=== PATIENT | female | born 1990 | race Two or more races ===

== ENCOUNTER 2017-02-17 12:38 | Emergency (ER) | payer MEDICAID ==
[~2017-02-17] VITALS: Ht 160 cm; Wt 72.1 kg
[2017-02-17 13:52] VITALS: BP 138/88
== END 2017-02-17 14:57 | disposition home or self-care (01) ==
LOC: ER 12:52
DX: F41.1 Generalized anxiety disorder (principal); F17.210 Nicotine dependence, cigarettes, uncomplicated; F12.10 Cannabis abuse, uncomplicated
CPT/HCPCS: 93005

== ENCOUNTER 2018-03-10 14:06 | Emergency (ER) | payer MEDICAID ==
[~2018-03-10] VITALS: Ht 160 cm; Wt 82.7 kg
[2018-03-10 16:23] VITALS: BP 114/68
[2018-03-10] MEDS ORDERED: KETOROLAC TROMETH 60MG/2ML VIAL IM ONE (16:45)
== END 2018-03-10 17:02 | disposition home or self-care (01) ==
LOC: ER 14:06
DX: S16.1XXA Strain of muscle, fascia and tendon at neck level, initial encounter (principal); F17.210 Nicotine dependence, cigarettes, uncomplicated; X50.1XXA Overexertion from prolonged static or awkward postures, initial encounter; Y93.89 Activity, other specified; Y92.89 Other specified places as the place of occurrence of the external cause; Y99.8 Other external cause status
CPT/HCPCS: 72040; 96372; 99284; J1885

== ENCOUNTER 2021-03-02 10:37 | Emergency (ER) | payer MEDICAID ==
[~2021-03-02] VITALS: Ht 162.6 cm; Wt 87.5 kg
[2021-03-02 10:57] VITALS: BP 116/66
[2021-03-02] MEDS ORDERED: METHOCARBAMOL 500 MG TAB PO ONE (12:00)
[2021-03-02] MEDS ORDERED: KETOROLAC TROMETH 60MG/2ML VIAL IM ONE (12:00)
== END 2021-03-02 12:05 | disposition home or self-care (01) ==
LOC: ER 10:37
DX: M62.838 Other muscle spasm (principal); F17.210 Nicotine dependence, cigarettes, uncomplicated
CPT/HCPCS: 96372; 99283; J1885

== ENCOUNTER 2024-08-06 09:27 | Emergency (ER) | payer MEDICAID ==
[~2024-08-06] VITALS: Ht 160 cm; Wt 77.3 kg
[2024-08-06 10:10] LABS: Urine Bacteria None Seen /hpf (None Seen)
[2024-08-06 10:16] VITALS: BP 124/70; PULSE 72; RESP 16; TEMP 98.2; O2SAT 98
[2024-08-06] MEDS: methylPREDNISolone SOD SUCC 125 MG/2 ML VL IM ONE (10:29)
[2024-08-06 10:49] LABS: Urine Blood Negative /uL (Negative); Urine Clarity Clear (Clear); Urine Color Light-Yellow (Yellow); Urine Protein, UAD Negative (Negative); Urine Specific Gravity 1.013 (1.001-1.035); Urine Urobilinogen Normal (Negative); Urine WBC 4 /hpf (0 - 5); Urine pH 5.5 (5.0-9.0)
[2024-08-06] MEDS ORDERED: NAPR-746 PO (11:06)
[2024-08-06] MEDS ORDERED: CYCL-837 PO (11:06)
[2024-08-06] MEDS ORDERED: LIDO5DIS21 TOP (11:06)
== END 2024-08-06 11:23 | disposition home or self-care (01) ==
LOC: ER 09:27
DX: M54.50 Low back pain, unspecified (principal); Z79.899 Other long term (current) drug therapy; Z98.890 Other specified postprocedural states
CPT/HCPCS: 81001; 81025; 96372; 99283; J2919

== ENCOUNTER 2025-03-29 16:04 | Emergency (ER) | payer MEDICAID ==
[~2025-03-29] VITALS: Ht 162.6 cm; Wt 76.0 kg
[~2025-03-29 16:04] MED LIST: CYCL-837 PO; LIDO5DIS21 TOP; NAPR-746 PO
[2025-03-29 17:05] VITALS: BP 115/78; PULSE 80; RESP 18; TEMP 97.8; O2SAT 96
--- NOTE | 2025-03-29 17:20 | ED.PDOC ---
Back pain HPI HPI Comments A 34 YEAR OLD FEMALE PRESENTS TO THE ED WITH CHIEF COMPLAINT OF LOWER BACK PAIN. PATIENT REPORTS THAT SHE HAS BEEN EXPERIENCING LOWER BACK PAIN FOR THE PAST 2 DAYS. PATIENT RELAYS THAT SHE WORKS A [employer] AND IS ALWAYS ON HER FEET, EXACERBATING HER PAIN. PATIENT NOTES SHE HAS BEEN SEEN MULTIPLE TIMES FOR THIS COMPLAINT AND REQUESTS LIDOCAINE PATCHES FOR RELIEF. PATIENT DENIES ANY NUMBNESS, WEAKNESS, TINGLING, FALL, OR INJURY. NO FURTHER COMPLAINTS OR CONCERNS AT THIS TIME. Chief Complaint: Back Pain Time Seen by MD: 17:18 Primary Care Provider: None Reviewed Notes: Nurses Notes, Medications, Allergies Allergies: Coded Allergies: NO KNOWN ALLERGIES (Unverified , 12/25/10) Home Meds Active Scripts Lidocaine (Lidocaine Patch 5%) 5 % Pad, 5 % EX DAILY, #30 PAD Prov:HAYDEN SIMMONS 03/29/25 Naproxen (Naproxen) 500 Mg Tab, 500 MG PO BIDPC for 14 Days, #28 TAB 0 Refills Prov:NICK ESPARZA NP 08/06/24 Lidocaine (LIDODERM 5% TOPICAL PATCH) 1 Patch Ph, 1 PATCH TOP DAILY for 30 Days, #30 PATCH 0 Refills Prov:NICK ESPARZA NP 08/06/24 Cyclobenzaprine Hcl (Cyclobenzaprine Hcl) 5 Mg Tab, 1 TAB PO QHSP PRN for 30 Days, #30 TAB 0 Refills Prov:NICK ESPARZA NP 08/06/24 Information Source: Patient Mode of Arrival: Ambulatory Timing: Days Duration: Since onset Location of Back pain: (B) Lower back Severity: Moderate Prehospital treatment: None Quality: Aching Onset: Bending, Twisting, Lifing Circumstance: Work Related History of: None Modifying Factors: Movement, Twisting Associated signs and symptoms: None Past Medical History PAST MEDICAL HISTORY: Denies Surgical History: Denies all surgeries PRESENTATION MANAGER History: No Pertinent PRESENTATION MANAGER History Family History Family History: Reviewed,noncontributory to illness, Unknown Social History Smoker: Cigarettes Alcohol: Denies ETOH Use Drugs: Marijuana Lives In: Home Constitutional: denies: chills, diaphoresis, fatigue, fever, malaise, sweats, weakness, others EENTM: denies: blurred vision, double vision, ear bleeding, ear discharge, ear drainage, ear pain, ear ringing, eye pain, eye redness, hearing loss, mouth pain, mouth swelling, nasal discharge, nose bleeding, nose congestion, nose pain, photophobia, tearing, throat pain, throat swelling, voice changes, others Respiratory: denies: cough, hemoptysis, orthopnea, SOB at rest, shortness of breath, SOB with excertion, stridor, wheezing, others Cardiovascular: denies: chest pain, dizzy spells, diaphoresis, Dyspnea on exertion, edema, irregular heart beat, left arm pain, lightheadedness, palpitations, PND, syncope, others Gastrointestinal: denies: abdomen distended, abdominal pain, blood streaked bowels, constipated, diarrhea, dysphagia, difficulty swallowing, hematemesis, melena, nausea, poor appetite, poor fluid intake, rectal bleeding, rectal pain, vomiting, others Genitourinary: denies: abnormal vagina bleeding, burning, dyspareunia, dysuria, flank pain, frequency, hematuria, incontinence, pain, , vagina discharge, urgency, others Neurological: denies: dizziness, fainting, headache, left sided numbness, left sided weakness, numbness, paresthesia, pre-existing deficit, right sided numbness, right sided weakness, seizure, speech problems, tingling, tremors, weakness, others Musculoskeletal: reports: back pain, muscle pain; denies: gout, joint pain, joint swelling, muscle stiffness, neck pain, others Integumetry: denies: bruises, change in color, change in hair/nails, dryness, laceration, lesions, lumps, rash, wounds, others Allergic/Immunocompromised: denies: Difficulty Healing, Frequent Infections, Hives, Itching, others Hematologic/Lymphatic: denies: anemia, blood clots, easy bleeding, easy bruising, swollen glands, others Endocrine: denies: excessive hunger, excessive sweating, excessive thirst, excessive urination, flushing, intolerance to cold, intolerance to heat, unexplained weight gain, unexplained weight loss, others Psychiatric: denies: anxiety, bipolar disorder, depression, hopeless, panic disorder, schizophrenia, sleepless, suicidal, others All Other Systems: Reviewed and Negative Physical Exam General Appearance: No Apparent Distress, Normal HEENT: Normal ENT Inspection, PERRL/EOMI, Pharynx Normal, TMs Normal Neck: Full Range of Motion, Non-Tender, Normal, Normal Inspection Respiratory: Chest Non-Tender, Lungs Clear, No Accessory Muscle Use, No Respiratory Distress, Normal Breath Sounds Cardiovascular: No Edema, No JVD, No Murmur, No Gallop, Normal Peripheral Pulses, Regular Rate/Rhythm Breast Exam: Deferred Gastrointestinal: No Organomegaly, Non Tender, No Pulsatile Mass, Normal Bowel Sounds, Soft Genitalia: Deferred Pelvic: Deferred Rectal: Deferred Extremities: No calf tenderness, Normal capillary refill, Normal inspection, Normal range of motion, Non-tender, No pedal edema Musculoskeletal : Location: Bilateral Extremity Location: Back Apperance: Tenderness (AND MUSCLE SPASM ON LOW BACK, NO BONY TENDERNESS, SWELLING AND DEFORMITY. 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 Was a procedure done?: No Back Pain Differential Dx Differential Diagnosis: Musculoskeletal Pain, Strain X-Ray, Labs, Meds, VS Vital Signs Date Time Temp Pulse Resp B/P (MAP) Pulse Ox O2 Delivery O2 Flow Rate FiO2 03/29/25 17:05 80 18 96 Room Air 03/29/25 17:05 97.8 80 18 115/78 (90) 96 97.8 03/29/25 16:21 97.8 80 18 115/78 (90) 96 97.8 Current Medications Medications (Trade) Dose Ordered Sig/Antonina Route Start Time Stop Time Status Last Admin Ketorolac Tromethamine (Toradol Injection) 60 mg ONCE ONCE IM 03/29/25 17:15 03/29/25 17:16 DC 03/29/25 17:24 X-Ray, Labs, Meds, VS Comment EXTERNAL MEDICAL RECORDS REVIEWED: [NONE] INDEPENDENT HISTORIANS: [NONE] SOCIAL DETERMINANTS OF HEALTH: [NONE] LABS ORDERED: NONE REVIEWED AND INTERPRETED RESULTS: L-SPINE XR IMAGING ORDERED: L-SPINE XR, PT DECLINED LOW BACK X-RAY. TREATMENTS ORDERED: TORADOL 60MG IM PROCEDURES PERFORMED: NONE CRITICAL CARE TIME: NONE I HAVE DISCUSSED THE PATIENT WITH THE ATTENDING PHYSICIAN DR. CORNELIO AND HE AGREES WITH THE PATIENT'S PLAN OF CARE AND DISPOSITION. BASED ON HISTORY OF PRESENT ILLNESS, AND PHYSICAL EXAM, PATIENT WILL BE DISCHARGED HOME. DISCUSSED PLAN FOR DISCHARGE HOME WITH RX LIDOCAINE PATCHES. MEDICATION WARNINGS GIVEN. SHARED DECISION MAKING: DISCUSSED WITH PATIENT THAT THEIR WORKUP WAS NORMAL. PATIENT INSTRUCTED TO FOLLOW UP WITH PRIMARY CARE PROVIDER IN 1-2 DAYS FOR RE- EVALUATION OF SYMPTOMS. PATIENT VERBALIZES UNDERSTANDING TO RETURN TO ED FOR NEW OR WORSENING SYMPTOMS OR IF FOLLOW UP WITH PCP CANNOT BE OBTAINED. PATIENT FEELS COMFORTABLE GOING HOME AT THIS TIME. ALL QUESTIONS ADDRESSED AT TIME OF DISCHARGE. Time of 1ST Reevaluation: 18:00 Reevaluation 1ST: Improved Patient Education/Counseling: Diagnosis, Treatment, Need For Follow Up Family Education/Counseling: Diagnosis, Treatment, No Family Present Medical Screening: No EMC Exist At This Time Departure 1 Departure Time of Disposition: 18:00 Impression: Primary Impression: Low back strain Qualified Codes: S39.012A - Strain of muscle, fascia and tendon of lower back, initial encounter Disposition: HOME / SELF CARE / HOMELESS Condition: Stable Additional Instructions: FOLLOW-UP WITH PCP IN 1 TO 2 DAYS. TAKE MEDICATIONS PRESCRIBED. RETURN TO ED FOR ANY NEW OR WORSENING SYMPTOMS. e-Prescriptions Lidocaine (Lidocaine Patch 5%) 5 % Pad 5 % EX DAILY, #30 PAD Prov: HAYDEN SIMMONS 03/29/25 Discharged With: Self Critical Care Note Critical Care Time?: No Stability Stability form required: No Heart Score Heart Score: Heart Score Response (Comments) Value History N/A 0 EKG N/A 0 Age N/A 0 Risk Factors N/A 0 Troponin N/A 0 Total 0 I personally scribed for HAYDEN SIMMONS ([email or web address]) on 03/29/25 at 17:20. Electronically submitted by Luis Agee ([email or web address]). HAYDEN SIMMONS March 29, 2025 17:20
[2025-03-29] MEDS: KETOROLAC TROMETH 60MG/2ML VIAL IM ONE (17:24)
[2025-03-29] MEDS ORDERED: LIDO5PAD12 EX (17:27)
== END 2025-03-29 17:43 | disposition home or self-care (01) ==
LOC: ER 16:04
DX: S39.012A Strain of muscle, fascia and tendon of lower back, initial encounter (principal); F17.210 Nicotine dependence, cigarettes, uncomplicated; F12.90 Cannabis use, unspecified, uncomplicated; Z79.899 Other long term (current) drug therapy; X58.XXXA Exposure to other specified factors, initial encounter; Y93.89 Activity, other specified; Y92.89 Other specified places as the place of occurrence of the external cause; Y99.8 Other external cause status
CPT/HCPCS: 96372; 99283; J1885